=== PATIENT | female | born 1985 | race Caucasian/White ===

== ENCOUNTER 2020-09-06 09:04 | Day surgery (SDC) | payer BC ==
[2020-08-31 09:33] LABS: CLARITY,URINE CLEAR (Clear); COLOR,URINE STRAW (Yellow); GLUCOSE, URINE NEGATIVE (Neg); KETONES,URINE NEGATIVE (Neg); LEUKOCYTE ESTERASE ,URINE TRACE (Neg); NITRITES, URINE NEGATIVE (Neg); OCCULT BLOOD,URINE NEGATIVE (Neg); PROTEIN,URINE NEGATIVE (Neg); UA COLLECTION TYPE CLN CATCH MIDSTREAM; UROBILINOGEN,URINE 0.2 E.U/dL (0.2-1.0)
[2020-08-31 09:36] LABS: HCG SERUM QL NEGATIVE
[2020-08-31 09:39] LABS: BACTERIA,URINE FEW /HPF (Neg); MUCUS STRANDS NONE SEEN /LPF (Neg); RBC,URINE NONE SEEN /HPF (0-2); SQUAMOUS EPITHELIAL CELL,UR FEW /LPF (FEW); WBC,URINE 0-4 /HPF (0-4)
[2020-08-31 09:41] LABS: BASOPHILS % (AUTO) 0.7 % (0-1); EOSINOPHILS # (AUTO) 0.3 X10'3 (0-0.9); EOSINOPHILS % (AUTO) 5.2 % (0-6); LYMPHOCYTES # (AUTO) 1.1 X10'3 (1.1-4.8); LYMPHOCYTES % (AUTO) 19.6 % (21-51); MEAN CORPUSCULAR HGB CONC 34.5 g/dL (33.0-36.5); MEAN CORPUSCULAR VOLUME 95.7 FL (78-98); MONOCYTES # (AUTO) 0.4 X10'3 (0-0.9); MONOCYTES % (AUTO) 7.6 % (2-12); NEUTROPHILS # (AUTO) 3.6 X10'3 (1.8-7.7); NEUTROPHILS % (AUTO) 66.9 % (42-75); PRE OP HEMATOCRIT 43.3 % (35.0-45.0); PRE OP HEMOGLOBIN 14.9 g/dL (12.0-16.0); PRE OP PLATELET COUNT 340 X10'3 (140-440); RED BLOOD COUNT 4.52 X10'6 (4.20-5.60); RED CELL DISTRIBUTION WIDTH 12.5 % (11.5-14.5)
[2020-08-31 09:42] LABS: ALBUMIN 4.2 G/DL (3.4-5.0); ALBUMIN/GLOBULIN RATIO 1.2 (1.1-1.5); ALKALINE PHOSPHATASE 65 IU/L (46-116); BLOOD UREA NITROGEN 11 MG/DL (7-18); BUN/CREATININE RATIO 14.1 (6.6-38.0); CALCIUM 8.6 MG/DL (8.5-10.1); CHLORIDE 99 MMOL/L (99-107); CREATININE 0.78 MG/DL (0.40-0.90); PRE OP ALT 20 U/L (30-65); PRE OP ANION GAP 10 (8-16); PRE OP AST 21 U/L (10-37); PRE OP BILIRUB, TOTAL 0.8 MG/DL (0.0-1.0); PRE OP GLUCOSE 76 MG/DL (70-104); PRE OP POTASSIUM 4.1 MMOL/L (3.4-5.1); PRE OP SODIUM 133 MMOL/L (135-145); TOTAL CARBON DIOXIDE 24.4 MMOL/L (24-32); TOTAL PROTEIN 7.8 G/DL (6.4-8.2); eGFR 85 ML/MIN
[~2020-09-06] VITALS: Ht 160 cm; Wt 57.2 kg
[2020-09-06] VITALS (8 sets, daily range): BP systolic 113–128; BP diastolic 77–88
[~2020-09-06 09:04] MED LIST: NO HOME MEDS; famotidine 20mg tablet PO ONE; ringers solution, lacted 1,000 ML IV SCH
[2020-09-06] MEDS ORDERED: BUPIVAcaine/PF 2.5 mg/ml (0.25%) 30ml vial ONE (11:19)
[2020-09-06] MEDS ORDERED: ondansetron/PF 4mg/2ml inj IV PRN (11:35)
[2020-09-06] MEDS ORDERED: morphine 4 MG/ML inj SYRINge IV PRN (11:35)
[2020-09-06] MEDS ORDERED: labetalol 20mg/4ml (5mg/ml) syringe IV PRN (11:35)
[2020-09-06] MEDS ORDERED: fentaNYL/PF 50MCG/1 ML 2ML syringe IV PRN ×2 (11:35)
[2020-09-06] MEDS ORDERED: morphine 2 MG/ML inj. syringe IV PRN (11:35)
[2020-09-06] MEDS ORDERED: hydrALAZINE 20mg/ml inj. IV PRN (11:35)
[2020-09-06] MEDS ORDERED: ringers solution, lacted 1,000 ML IV SCH (11:35)
[2020-09-06] MEDS ORDERED: fentaNYL/PF 50MCG/1 ML 2ML syringe ONE (11:38)
[2020-09-06] MEDS ORDERED: midazolam 1 mg/ML 2ml injection ONE (11:39)
[2020-09-06] MEDS ORDERED: meperidine/PF 50mg/ml syringe ONE (11:39)
[2020-09-06] MEDS ORDERED: propofol inj 20 ML IV ONE (11:46)
[2020-09-06] MEDS ORDERED: rocuronium 10mg/ml inj IV ONE (11:46)
[2020-09-06] MEDS ORDERED: ondansetron/PF 4mg/2ml inj ONE (11:46)
[2020-09-06] MEDS ORDERED: LIDOcaine 2% (20mg/ml) 5ml vial ONE (11:46)
[2020-09-06] MEDS ORDERED: glycopyrrolate 0.2mg/ml inj ONE (11:46)
[2020-09-06] MEDS ORDERED: oxyCODONE/APAP 5-325mg tablet PO ONE ×2 (12:30)
--- NOTE | 2020-09-06 12:33 | NUR ---
Received from OR via [facility] IN STABLE CONDITION , accompanied by Anesthesiologist and NEWS BROADCASTER report given by Becky. Addendum: 09/06/20 at 1329 by Petra Paiz RN Amended: Links added.
--- NOTE | 2020-09-06 13:43 | NUR ---
PATIENT DISCHARGED FROM PACU IN STABLE CONDITION AFTER WRITTEN AND VERBAL DISCHARGE INSTRUCTIONS GIVEN. PATIENT GAVE VERBAL UNDERSTANDING OF INSTRUCTIONS GIVEN. PATIENT LEFT FACILITY VIA WHEELCHAIR WITH RN. Addendum: 09/06/20 at 1350 by Petra Paiz RN Amended: Links added.
== END 2020-09-06 13:43 | disposition home or self-care (01) ==
LOC: PAS 09:04
PROVIDERS: ATTEND Obstetrics & Gynecology
DX: Z30.2 Encounter for sterilization (principal); N83.02 Follicular cyst of left ovary; F41.9 Anxiety disorder, unspecified; Z20.822 Contact with and (suspected) exposure to COVID-19; Z79.899 Other long term (current) drug therapy; Z98.890 Other specified postprocedural states
CPT/HCPCS: 36415; 58301; 58670; 80053; 81001; 82948; 84703; 85025; 86885; 86900; 86901; 87088; J2001; J2175; J2250; J2405; J2704; J3010; J3490; U0003; U0005; A4618; A6250; J7120